=== PATIENT | female | born 1995 | race American Indian/Alaskan Native ===

== ENCOUNTER 2017-05-19 21:09 | Emergency (ER) | payer SELFPAY ==
[2017-05-19 21:30] VITALS: BP 108/73
[2017-05-19 22:01] LABS: Basophils % (Auto) 0.3 % (0.0-1.8); Eosinophils % (Auto) 0.7 % (0.0-4.3); Hematocrit 37.1 % (30.3-42.9); Hemoglobin 12.2 gm/dl (10.1-14.3); Mean Corpuscular HGB Conc 33 % (30-34); Mean Corpuscular Hemoglobin 29 pg (28-32); Mean Corpuscular Volume 88 fl (79-97); Platelet Count 256 K/mm3 (140-440); Red Cell Distribution Width 13.2 % (13.2-15.2); White Blood Count 8.9 K/mm3 (4.5-11.0)
[2017-05-19 22:53] LABS: Bilirubin,Urine NEG (Negative); Blood,Urine NEG (Negative); Ketones,Urine NEG (Negative); Leukocyte Esterase,Urine NEG (Negative); Mucus,Urine 3+ /HPF; Nitrite,Urine NEG (Negative); Protein,Urine <15 mg/dL mg/dL (Negative)
== END 2017-05-20 01:30 | disposition left against medical advice (07) ==
LOC: ED 21:09
DX: O20.9 Hemorrhage in early pregnancy, unspecified (principal); Z3A.01 Less than 8 weeks gestation of pregnancy
CPT/HCPCS: 36415; 81001; 84702; 84703; 85025; 86850; 86900; 86901

== ENCOUNTER 2018-02-21 18:43 | Emergency (ER) | payer OTHER, MEDICAID ==
[2018-02-21 19:45] VITALS: BP 130/97
[2018-02-21] MEDS ORDERED: MOTRIN PO ONE (19:46)
--- NOTE | 2018-02-21 20:27 | XRay Report ---
FINAL REPORT PROCEDURE: XR SPINE CERVICAL 2-3V TECHNIQUE: Cervical spine radiographs, AP, lateral, and open-mouth odontoid views. CPT 34964 HISTORY: neck pain COMPARISON: No prior studies are available for comparison. FINDINGS: Limited study due to suboptimal open mouth view with patient rotation to left. AP and lateral views are otherwise unremarkable demonstrating normal vertebral height and normal intervertebral disc spaces. Prevertebral soft tissues are within normal limits. An acute fracture is not identified. IMPRESSION: Limited study due to suboptimal positioning. No obvious acute abnormality
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
== END 2018-02-21 22:10 | disposition home or self-care (01) ==
LOC: ED 18:43
DX: S13.4XXA Sprain of ligaments of cervical spine, initial encounter (principal); V49.59XA Passenger injured in collision with other motor vehicles in traffic accident, initial encounter; Y93.89 Activity, other specified; Y99.8 Other external cause status; Y92.488 Other paved roadways as the place of occurrence of the external cause
CPT/HCPCS: 72040